=== PATIENT | male | born 1965 | race African-American/Black ===

== ENCOUNTER 2017-12-04 09:58 | Emergency (ER) | payer OTHER ==
[~2017-12-04] VITALS: Ht 180.3 cm; Wt 99.8 kg
[~2017-12-04 09:58] MED LIST: FLEXERIL10 MG PO; MOBIC15 MG PO; MOTRIN800 MG PO; PERCOCET 325 MG1 TA2 PO
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
[2017-12-04 11:25] LABS: ABSOLUTE BASOPHIL COUNT 0 /CUMM (0.0-0.2); ABSOLUTE EOSINOPHIL COUNT 0.1 /CUMM (0.0-0.7); ABSOLUTE GRANULOCYTE CT 3.8 /CUMM (1.4-6.5); ABSOLUTE LYMPH COUNT 0.6 /CUMM (1.2-3.4); ABSOLUTE MONOCYTE COUNT 0.3 /CUMM (0.10-0.60); BASOPHIL % 0.3 % (0.0-2.0); GRANULOCYTE % 76.9 % (42.2-75.2); HEMATOCRIT 45.3 % (42-52); MEAN CORPUSCULAR HGB CONC 34.1 G/DL (33.0-37.0); MEAN PLATELET VOLUME 9.1 FL (7.4-10.4); PLATELET COUNT 162 /CUMM (130-400); RBC DISTRIBUTION WIDTH 14.1 % (11.5-14.5); RED BLOOD CELL CT 4.98 /CUMM (4.70-6.10)
--- NOTE | 2017-12-04 13:19 | CT SCAN REPORT ---
EXAMINATION: CT ABDOMEN AND PELVIS WITH CONTRAST CLINICAL INFORMATION: Right groin hernia, pain, swelling COMPARISON: CT 09/06/2014 TECHNIQUE: Multidetector volumetric imaging was performed of the abdomen and pelvis following IV administration of 94 mL of Optiray 320 intravenous contrast. Sagittal and coronal reformatted images were obtained on the technologist's workstation. DLP: 501 mGy-cm FINDINGS: LUNG BASES: Bibasilar atelectasis. LIVER, GALLBLADDER, AND BILIARY TREE: The liver is normal in size, shape, and attenuation. No focal hepatic lesion or biliary ductal dilatation is present. The gallbladder is unremarkable with no evidence of radiopaque gallstones, gallbladder wall thickening, or obvious pericholecystic inflammatory changes. PANCREAS: Unremarkable. SPLEEN: Unremarkable. ADRENAL GLANDS: Unremarkable. KIDNEYS AND URETERS: The kidneys enhance symmetrically. There is a cyst in the midpole region of the left kidney measuring up to 1.8 cm. No hydronephrosis. BLADDER: Unremarkable. GASTROINTESTINAL TRACT: There is dense stool present throughout the sigmoid colon and rectum. There are no dilated loops of small or large bowel. The appendix is normal. ABDOMINAL WALL: There are bilateral fat-containing inguinal hernias, right greater than left. There is asymmetric thickening of the wall of the right inguinal hernia sac compared to the left. The dimensions of the sac are 3.8 (transverse) by 2.5 (AP) CM. There are no loops of bowel trapped within the right hernia sac. LYMPH NODES: Normal. VASCULAR: Unremarkable. PELVIC VISCERA: The prostate is mildly enlarged measuring up to 6.4 cm in transverse diameter. The median lobe is mildly prominent. OSSEOUS STRUCTURES: There are mild degenerative changes present at the L5-S1 level. IMPRESSION: 1. Asymmetric inguinal hernias, right greater than left with associated inflammatory changes. Clinical correlation recommended. 2. Enlarged prostate.
[2017-12-04 17:01] VITALS: BP 125/84
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
== END 2017-12-04 17:21 ==
LOC: ERH 09:58
PROVIDERS: Physician Assistant Medical
DX: K40.90 Unilateral inguinal hernia, without obstruction or gangrene, not specified as recurrent (principal)
CPT/HCPCS: 74177; 81001; 96374; 96375; J2405

== ENCOUNTER → 2017-12-22 | Day surgery (SDC) | payer OTHER ==
[~2017-12-22] VITALS: Ht 180.3 cm; Wt 99.8 kg
[~2017-12-22] MED LIST changes: +PERCOCET 5-3251 EACH PO
--- NOTE | 2017-12-22 13:17 | Operative Report ---
Operative/Inv Procedure Report Surgery Date: 12/22/17 Name of Procedure: Laparoscopic right inguinal hernia repair Pre-Operative Diagnosis: Right angle hernia Post-Operative Diagnosis: Same Estimated Blood Loss: scant Surgeon/Yard Motor Operator: Kar Mason MD Anesthesia: general endotracheal tube Implants: Parietex mesh Operative/Procedure Note Note: After consent patient is brought to the operating room laid supine. General anesthesia was obtained and the abdomen was prepped and draped. Skin was anesthetized with local anesthesia and a transverse infraumbilical incision made sharply. We identified the rectus fascia and incised transversely. Stay sutures were placed. Rectus muscle was retracted laterally and a dissecting balloon placed posterior to it. It was inflated under direct vision the camera and replaced with a blunt Gar port. Gas was instilled. 2, 5 mm ports were placed in the infraumbilical midline after local anesthesia was instilled and under direct vision and camera. Began our dissection at the pubis and delineated the symphysis. Davide's ligament was identified and cleared. There is no direct hernia. Then dissected laterally and developed the iliopubic tract. The cord structures were circumferentially dissected. There was a large indirect hernia sac. Dissection was quite difficult due to the chronic incarcerated nature of it. It was dissected free from the cord structures and reflected medially. Once the dissection was completed a right-sided piece of Parietex mesh was placed in the cavity. It was placed around the cord structures re-create the internal ring and cover the femoral and direct spaces as well. Gas was allowed to escape on maintaining proper orientation of the mesh. The fascia was closed with 0 Vicryl suture. Skin incisions closed with 4 -0 Vicryl. Steri-Strips and sterile dressing applied. Sponge and needle counts are correct. Findings: Indirect
== END ==
LOC: STS 02:26
DX: K40.30 Unilateral inguinal hernia, with obstruction, without gangrene, not specified as recurrent (principal); I10 Essential (primary) hypertension
CPT/HCPCS: C1781; J0131; J0690; J2250